=== PATIENT | male | born 1960 ===

== ENCOUNTER 2022-05-16 18:51 | Emergency (ER) | payer MEDICAID, SELFPAY ==
[2022-05-16 18:58] VITALS: BP 112/73; PULSE 87; RESP 16; TEMP 36.8; O2SAT 96
--- NOTE | 2022-05-16 19:02 | ED.GENADUL_ITS ---
Discharge Plan Disposition Patient Disposition: HOME Condition: Stable Discharge Details Clinical Impression: Homeless Primary Care Provider: Unknown,Unknown ED Provider: Shorty Dyer Home Meds and New Rx's Prescriptions: Continued Xarelto 20 mg Tablet 20 mg PO DAILY torsemide 20 mg Tablet 20 mg PO DAILY spironolactone 25 mg Tablet 25 mg PO DAILY AM lisinopril 2.5 mg Tablet 2.5 mg PO DAILY pantoprazole 40 mg Tablet,Delayed Release (Dr/Ec) 40 mg PO DAILY AM divalproex [Depakote ER] 500 mg Tablet Extended Release 24 Hr 1,000 mg PO HS atorvastatin 20 mg Tablet 20 mg PO HS quetiapine 50 mg Tablet 50 mg PO BID quetiapine 400 mg Tablet 400 mg PO HS metoprolol succinate 50 mg Tablet Extended Release 24 Hr 50 mg PO DAILY AM trazodone 100 mg Tablet 100 mg PO HS Discharge Instructions Instructions: Rectal Bleeding (ED) Additional Instructions: Please take you medications as prescribed. Your exam is positive for blood in your stool today. I would like you to follow-up with general surgery for colonoscopy. Care management will reach out to you to help schedule follow-up appointment. Please follow [place] [facility] [place]. You have contracted to [facility] with mental health this evening. If you find yourself begin to escalate, please try to isolate, with music and journal as was outlined with mental health provider. You may call [facility] human services at any time if you have increasing concerns for your mental health at [phone]. If you have increased bleeding, abdominal pain, lightheadedness or thoughts of self-harm, or any other concerning symptoms, please return to the emergency department. Referrals: Galilea Vargas DO [OSTEOPATHIC DOCTOR] - Discharge Data Discharge Date/Time-TO BE ENTERED AT DEPARTURE: 05/18/22 15:43 Medical Decision Making <BRIDGETTE Boo - Last Filed: 05/18/22 14:07> Patient is a 61-year-old male presenting with regarding the right EMS, with chief complaint of blood clots noted in his stool. Past medical history significant for bipolar disorder, Neurocognitive disorder, TBI, HFrEF, HLD, GERD. Patient was [place] [facility] [place] after inpatient stay for suicidal ideation. He denies any suicidal or homicidal ideation at this time although he does report that he is at a chronic issue with his mental health. He describes a long admission both [place] [facility] as well as at [facility], has been in and out this summer based on patient report. He reports that he likes being admitted as it has better food and is bus cleaner without large dogs. He reports a prior to being discharged from [facility] this morning, he had a bowel movement and noted a blood clot in the stool. This sounds to only happen x1. Describes it as a dark blood clot and no large quantities of blood in the toilet. He has had this happen 1 time historically, states this last happened about 1 year ago. No previous hemorrhoids that he is aware of. He denies any abdominal or rectal pain. No fevers or chills. No nausea or vomiting. Denies any easy bruising, hematuria, bleeding gums. No familial history of colorectal cancer. Patient does report that he was previously scheduled for colonoscopy but secondary to his numerous admissions he did miss this. Reviewed notes from [facility] discharge Today. They do report that the patient was recently admitted for 2-month inpatient psychiatric hospitalization. Was admitted this time for SI and decreased oral intake. Patient was discharged as he was not endorsing any SI and the p.o. intake was limited as the patient did not like the food at his current living situation. This is largely with him during tonight on the patient initial discussion with me. They advised that there is no psychiatric indication for hospitalization patient was discharged. Patient did undergo medical work-up. After this, his decreased appetite was deemed to be associated with behavioral reasons rather than self-harm. Exam, patient appears nontoxic. He appears well-hydrated. His abdomen is benign with no mass, tenderness time. Rectal exam reveals heme positive stool. This is not grossly bloody. Spoke with the patient's legal guardian, Jyotsna [phone]. She gave permission to treat. I did discuss with her the patient does not seem to be actively suicidal at this time. Rather, patient like to be admitted for more comfort reasons. Spoke with mental health. They advised that they were initially notified that the patient was initially expressing suicidal ideations. They did evaluate patient at bedside and believe he is safe for discharge home. They have 2 finding the same information with patient primarily reporting that he likes admission for the cleanliness, food and general environment. He did not meet criteria for inpatient psychiatric admission. He is a Patient and does have planned follow-up. Safety plan was made with mental [facility] based on patient's history. With patient did have blood work completed while at [facility]. Yesterday, patient's hemoglobin was 17. Demonstrating this associate with internal hemorrhoids or alternatively diverticulosis. I did relay this to the patient. I do not note any palpable internal hemorrhoids time. He does report that he is due for colonoscopy so alternatively, I did consider colorectal cancer and feel that the patient should be followed up with a colonoscopy. I have asked her care management to assist with this follow-up. As patient has is not an imminent threat to himself or others, is not here for any psychiatric complaint, was evaluated by mental health and is hemodynamically stable in regard to his bleeding, so the patient may be discharged home. I have asked care management to ensure that patient has prompt follow-up with primary care as well as referral for further evaluation of his recurrent rectal bleeding and likely colonoscopy. When we attempted to reach out to patient's home care provider and guardian, there is no answer. He does have a history of TBI and does have a legal guardian, will have him sleep in the department to ensure safety until we are able to secure safe transport home. Patient does feel safe going home and is agreeable with this plan. All questions and concerns were addressed. Return cautions were discussed. At the end of my shift, patient sleeping in room 5. Care transitioned to Dr. Sandy. Cleared but unable to reach anyone to pick him up for return home. pt signed out to me, will require care management involvement in the AM to find safe transportation home and also make sure he has a safe place to go to. 05/17 9: 50 patient resting comfortably no acute distress. Reached out to most recent caregiver the [employer] family at phone number [phone] and spoke with Violette Ojeda who endorses that through the [employer] support services they were the most recent ethernet network architect of patient, endorses that over the past several days he has become more reclusive and aggressive both with her and the family dog to the point where they needed to call the police and EMS, they were unwilling to accept patient back into their care. Care management team has reached out to patient's state appointed guardian who says that she has a w [place] to go to and is uncertain about taking the patient back although she will attempt to reach out to other contacts to see if they can secure a safe place for patient to stay. In the meantime I have given patient has home medications. Will reassess placement options this afternoon if no options available, will attempt to admit patient for placement as he is an at risk older male that is unlikely able to care for himself at this time 19: 57 care management team and myself have been in contact with multiple prior caregivers and caregiver organizations, currently patient's most recent care givers are unavailable or unwilling to accept him back to the home given his recent behavior. Care management organization currently reaching out to find safe placement for this patient. Currently resting notably no acute distress. Was given his morning meds will need his evening meds today. <Juan Sandy MD - Last Filed: 05/17/22 02:51> Patient is a 61-year-old male presenting with regarding the right EMS, with chief complaint of blood clots noted in his stool. Past medical history significant for bipolar disorder, Neurocognitive disorder, TBI, HFrEF, HLD, GERD. Patient was [place] [facility] [place] after inpatient stay for suicidal ideation. He denies any suicidal or homicidal ideation at this time although he does report that he is at a chronic issue with his mental health. He describes a long admission both [place] [facility] as well as at [facility], has been in and out this summer based on patient report. He reports that he likes being admitted as it has better food and is bus cleaner without large dogs. He reports a prior to being discharged from [facility] this morning, he had a bowel movement and noted a blood clot in the stool. This sounds to only happen x1. Describes it as a dark blood clot and no large quantities of blood in the toilet. He has had this happen 1 time historically, states this last happened about 1 year ago. No previous hemorrhoids that he is aware of. He denies any abdominal or rectal pain. No fevers or chills. No nausea or vomiting. Denies any easy bruising, hematuria, bleeding gums. No familial history of colorectal cancer. Patient does report that he was previously scheduled for colonoscopy but secondary to his numerous admissions he did miss this. Reviewed notes from [facility] discharge Today. They do report that the patient was recently admitted for 2-month inpatient psychiatric hospitalization. Was admitted this time for SI and decreased oral intake. Patient was discharged as he was not endorsing any SI and the p.o. intake was limited as the patient did not like the food at his current living situation. This is largely with him during tonight on the patient initial discussion with me. They advised that there is no psychiatric indication for hospitalization patient was discharged. Patient did undergo medical work-up. After this, his decreased appetite was deemed to be associated with behavioral reasons rather than self-harm. Exam, patient appears nontoxic. He appears well-hydrated. His abdomen is benign with no mass, tenderness time. Rectal exam reveals heme positive stool. This is not grossly bloody. Spoke with the patient's legal guardian, Jyotsna [phone]. She gave permission to treat. I did discuss with her the patient does not seem to be actively suicidal at this time. Rather, patient like to be admitted for more comfort reasons. Spoke with mental health. They advised that they were initially notified that the patient was initially expressing suicidal ideations. They did evaluate patient at bedside and believe he is safe for discharge home. They have 2 finding the same information with patient primarily reporting that he likes admission for the cleanliness, food and general environment. He did not meet criteria for inpatient psychiatric admission. He is a Patient and does have planned follow-up. Safety plan was made with mental health tonight based on patient's history. With patient did have blood work completed while at [facility]. Yesterday, patient's hemoglobin was 17. Demonstrating this associate with internal hemorrhoids or alternatively diverticulosis. I did relay this to the patient. I do not note any palpable internal hemorrhoids time. He does report that he is due for colonoscopy so alternatively, I did consider colorectal cancer and feel that the patient should be followed up with a colonoscopy. I have asked her care management to assist with this follow-up. As patient has is not an imminent threat to himself or others, is not here for any psychiatric complaint, was evaluated by mental [facility] and is hemodynamically stable in regard to his bleeding, so the patient may be discharged home. I have asked care management to ensure that patient has prompt follow-up with primary care as well as referral for further evaluation of his recurrent rectal bleeding and likely colonoscopy. When we attempted to reach out to patient's home care provider and guardian, there is no answer. He does have a history of TBI and does have a legal guardian, will have him sleep in the department to ensure safety until we are able to secure safe transport home. Patient does feel safe going home and is agreeable with this plan. All questions and concerns were addressed. Return cautions were discussed. At the 3end of my shift, patient sleeping in room 5. Care transitioned to Dr. Sandy. Cleared but unable to reach anyone to pick him up for return home. pt signed out to me, will require care management involvement in the AM to find safe transportation home and also make sure he has a safe place to go to. <Fred Guerra MD - Last Filed: 05/17/22 19:58> Patient is a 61-year-old male presenting with regarding the right EMS, with chief complaint of blood clots noted in his stool. Past medical history significant for bipolar disorder, Neurocognitive disorder, TBI, HFrEF, HLD, GERD. Patient was [place] [facility] [place] inpatient stay for suicidal ideation. He denies any suicidal or homicidal ideation at this time although he does report that he is at a chronic issue with his mental health. He describes a long admission both [place] [facility] as well as at [facility], has been in and out this summer based on patient report. He reports that he likes being admitted as it has better food and is bus cleaner without large dogs. He reports a prior to being discharged from [facility] this morning, he had a bowel movement and noted a blood clot in the stool. This sounds to only happen x1. Describes it as a dark blood clot and no large quantities of blood in the toilet. He has had this happen 1 time historically, states this last happened about 1 year ago. No previous hemorrhoids that he is aware of. He denies any abdominal or rectal pain. No fevers or chills. No nausea or vomiting. Denies any easy bruising, hematuria, bleeding gums. No familial history of colorectal cancer. Patient does report that he was previously scheduled for colonoscopy but secondary to his numerous admissions he did miss this. Reviewed notes from [facility] discharge Today. They do report that the patient was recently admitted for 2-month inpatient psychiatric hospitalization. Was admitted this time for SI and decreased oral intake. Patient was discharged as he was not endorsing any SI and the p.o. intake was limited as the patient did not like the food at his current living situation. This is largely with him during tonight on the patient initial discussion with me. They advised that there is no psychiatric indication for hospitalization patient was discharged. Patient did undergo medical work-up. After this, his decreased appetite was deemed to be associated with behavioral reasons rather than self-harm. Exam, patient appears nontoxic. He appears well-hydrated. His abdomen is benign with no mass, tenderness time. Rectal exam reveals heme positive stool. This is not grossly bloody. Spoke with the patient's legal guardian, Jyotsna [phone]. She gave permission to treat. I did discuss with her the patient does not seem to be actively suicidal at this time. Rather, patient like to be admitted for more comfort reasons. Spoke with mental health. They advised that they were initially notified that the patient was initially expressing suicidal ideations. They did evaluate patient at bedside and believe he is safe for discharge home. They have 2 finding the same information with patient primarily reporting that he likes admission for the cleanliness, food and general environment. He did not meet criteria for inpatient psychiatric admission. He is a Patient and does have planned follow-up. Safety plan was made with mental health tonight based on patient's history. With patient did have blood work completed while at [facility]. Yesterday, patient's hemoglobin was 17. Demonstrating this associate with internal hemorrhoids or alternatively diverticulosis. I did relay this to the patient. I do not note any palpable internal hemorrhoids time. He does report that he is due for colonoscopy so alternatively, I did consider colorectal cancer and feel that the patient should be followed up with a colonoscopy. I have asked her care management to assist with this follow-up. As patient has is not an imminent threat to himself or others, is not here for any psychiatric complaint, was evaluated by mental [facility] and is hemodynamically stable in regard to his bleeding, so the patient may be discharged home. I have asked care management to ensure that patient has prompt follow-up with primary care as well as referral for further evaluation of his recurrent rectal bleeding and likely colonoscopy. When we attempted to reach out to patient's home care provider and guardian, there is no answer. He does have a history of TBI and does have a legal guardian, will have him sleep in the department to ensure safety until we are able to secure safe transport home. Patient does feel safe going home and is agreeable with this plan. All questions and concerns were addressed. Return cautions were discussed. At the 3end of my shift, patient sleeping in room 5. Care transitioned to Dr. Sandy. Cleared but unable to reach anyone to pick him up for return home. pt signed out to me, will require care management involvement in the AM to find safe transportation home and also make sure he has a safe place to go to. 05/17 9: 50 patient resting comfortably no acute distress. Reached out to most recent caregiver the [employer] family at phone number [phone] and spoke with Violette Ojeda who endorses that through the [employer] support services they were the most recent ethernet network architect of patient, endorses that over the past several days he has become more reclusive and aggressive both with her and the family dog to the point where they needed to call the police and EMS, they were unwilling to accept patient back into their care. Care management team has reached out to patient's state appointed guardian who says that she has a wedding to go to and is uncertain about taking the patient back although she will attempt to reach out to other contacts to see if they can secure a safe place for patient to stay. In the meantime I have given patient has home medications. Will reassess placement options this afternoon if no options available, will attempt to admit patient for placement as he is an at risk older male that is unlikely able to care for himself at this time 19: 57 care management team and myself have been in contact with multiple prior caregivers and caregiver organizations, currently patient's most recent caregivers are unavailable or unwilling to accept him back to the home given his recent behavior. Care management organization currently reaching out to find safe placement for this patient. Currently resting notably no acute distress. Was given his morning meds will need his evening meds today. HPI <BRIDGETTE Boo - Last Filed: 05/18/22 14:07> General Date/Time Provider Initiated Documentation: 05/16/22 19:01 . Limitations to Documentation: no limitations . Information obtained by: patient, EMS and RN notes reviewed . History of Present Illness 61 year old M presents to the emergency department with the chief complaint of clots noted in stool this AM, described as mild (x 1, none since) and similar to prior episodes (similar about one year ago), with intensity rated at 1 (denies any pain). and is localized to the buttocks. Patient reports no radiation. Patient started experiencing this hour(s) (x1 blood stool this AM) and it has been now resolved. No relieving factors improve symptom(s), No exacerbating factors reported . Patient notes no other symptoms.. Patient did receive the following treatments prior to arrival, none Related Data Home Medications Medication Instructions Recorded Confirmed atorvastatin 20 mg tablet 20 mg PO HS 05/17/22 05/17/22 divalproex 500 mg tablet,extended 1,000 mg PO HS 05/17/22 05/17/22 release 24 hr (Depakote ER) lisinopril 2.5 mg tablet 2.5 mg PO DAILY 05/17/22 05/17/22 metoprolol succinate 50 mg 50 mg PO DAILY AM 05/17/22 05/17/22 tablet,extended release 24 hr pantoprazole 40 mg tablet,delayed 40 mg PO DAILY AM 05/17/22 05/18/22 release quetiapine 400 mg tablet 400 mg PO HS 05/17/22 05/17/22 quetiapine 50 mg tablet 50 mg PO BID 05/17/22 05/18/22 rivaroxaban 20 mg tablet (Xarelto) 20 mg PO DAILY 05/17/22 05/17/22 spironolactone 25 mg tablet 25 mg PO DAILY AM 05/17/22 05/18/22 torsemide 20 mg tablet 20 mg PO DAILY 05/17/22 05/17/22 trazodone 100 mg tablet 100 mg PO HS 05/18/22 05/18/22 Allergies Allergy/AdvReac Type Severity Reaction Status Date / Time Penicillins Allergy Unverified 05/16/22 19:09 Review of Systems <BRIDGETTE Boo - Last Filed: 05/18/22 14:07> Constitutional Constitutional: Reports as per HPI, Denies chills, Denies fatigue, Denies fever(s) and Denies headache(s) ENT Ears, Nose, Mouth, and Throat: Denies headache(s) Cardiovascular Cardiovascular: Reports as per HPI, Denies chest pain and Denies dyspnea Respiratory Respiratory: Reports as per HPI, Denies cough and Denies dyspnea Gastrointestinal Gastrointestinal: Reports as per HPI Genitourinary Genitourinary: Denies system reviewed and no additional complaints, except as documented (patient denies any change in urinary habits) Musculoskeletal Musculoskeletal: Reports as per HPI and Denies back pain Integumentary/Breasts Skin/Breast: Reports as per HPI and Denies rash Neurologic Neurologic: Reports as per HPI and Denies headache(s) Psychiatric Psychiatric: Denies hopelessness, Reports irritability (does not like dog or food in current residence), Denies homicidal ideation and Denies suicidal ideation Endocrine Endocrine: Denies fatigue PFSH <BRIDGETTE Boo - Last Filed: 05/18/22 14:07> All Active Problems Homeless (Acute) Social History Smoking/Tobacco Use Status: Former Tobacco Use Smoking risk assessment performed?: Yes Alcohol Intake: former Substance use type: does not use Exam <BRIDGETTE Boo - Last Filed: 05/18/22 14:07> Const General: cooperative, healthy appearing, comfortable, no acute distress and well developed Nutritional Appearance: average body habitus and well nourished Orientation: alert and awake HENMT Head: normal to inspection Mouth: moist mucous membranes Resp Effort & Inspection: normal respiratory effort, able to speak in complete sentences and no respiratory distress Auscultation: clear to auscultation bilaterally, no rales, no rhonchi and no wheezes Cardio Rate: regular rate Rhythm: regular rhythm Heart Sounds: S1 normal and S2 normal GI Inspection: normal to inspection Palpation: soft, no hepatosplenomegaly, not firm, no guarding, no hernias, no masses, no pulsatile masses, not rigid, nontender and No ascites Percussion: normal to percussion Auscultation: normal bowel sounds Rectal Exam: visual inspection normal, normal sphincter tone, prostate normal and heme positive stool trace Back/Spine/Pelvis Back: no CVA tenderness Skin General skin exam: no rashes or lesions noted Trauma: no lacerations or abrasions Neuro General: patient alert and patient awake Cognition: normal cognition Speech: speech normal Gait: normal gait Psych Appearance: grossly normal and well kempt Mental Status: mental status grossly normal Speech and Movement: speech and movement normal Mood: congruent mood Affect: normal affect Attitude: cooperative Thought Process: normal Thought Content: normal Insight: limited Judgment: limited Sign Out <BRIDGETTE Boo - Last Filed: 05/18/22 14:07> Sign Out Data: Sign Out Comment: Care transitioned to Dr. Sandy, waiting ride home. Was initially reported to be here for psychiatric complaints but has consistently denied since coming here. Evaluated and cleared by . Concerned about BRBPR, this [place] [facility] [place]. Have referred to general surgery for colonoscopy and local PCP Last updated by Erika Rodriguez PA at 05/17/22 01:51 Sign Out Comment: [place] [facility] [place]bipolar and also social reasons, ended up here after ems bypassed [facility]. Cleared by mental health but no rides for him to pick him up, will likely require care management involvement. Last updated by Juan Sandy MD at 05/17/22 02:52 Sign Out Comment: care management team working on finding secure placement; medically and psychiatrically stable; will need evening doses of home meds; reassessing placements options in AM Last updated by Fred Guerra MD at 05/17/22 20:00 Sign Out Comment: care management working to find safe dispo, no acute psychiatric or medical need for admission, homeless Last updated by Juan Sandy MD at 05/18/22 00:26
--- NOTE | 2022-05-17 08:22 | NUR.NOTE ---
pt had a brown , formed BM in the toilet Nursing Note:
[2022-05-17 08:41] VITALS: BP 159/106; PULSE 62; RESP 16; O2SAT 95
--- NOTE | 2022-05-17 08:42 | NUR.NOTE ---
burke barton from [facility] called to say that they could not help this pt in any way. when asked, shesaid that pt was in a shared living provider situation. they will not accept him back.Nursing Note:
--- NOTE | 2022-05-17 09:00 | NUR.NOTE ---
Nursing Note: Faxed to [facility] referral for bloody stool/needs colonoscopy; ARIELA.
[2022-05-17] MEDS: Divalproex 500 MG TABEC 1000 MG PO (09:52)
[2022-05-17] MEDS: Atorvastatin 20 MG TAB PO ×2 (09:52→21:19)
[2022-05-17] MEDS: Spironolactone 25 MG TAB PO (09:53)
[2022-05-17] MEDS: LISINOPRIL 2.5 MG TAB PO (09:53)
[2022-05-17] MEDS: Rivaroxaban 10 MG TABLET 20 MG PO (09:54)
[2022-05-17] MEDS: Torsemide 20 MG TAB PO (10:00)
[2022-05-17] MEDS: Pantoprazole 40 MG TABCR PO (10:00)
[2022-05-17] MEDS: Metoprolol 50 MG TAB PO (10:00)
[2022-05-17] MEDS: QUEtiapine 50 MG TAB PO (10:00)
--- NOTE | 2022-05-17 11:55 | PDOC.MHCN_ITS ---
Date of service: 05/16/22 Time of Service: 21:00 Mental Health Crisis Note Presenting Issue How did you arrive at the ED and why did you come: Client was brought to [facility] via [facility] after reporting to [facility], EMT, and this appeals writer he was suicidal. Precipitating Factors On arrival to [facility] cleint reproted he was not suicidal and would never intentionally harm himself. Disposition BEHAVIOR: Unremarkable EYE CONTACT: Good MOOD: Depressed AFFECT: Congruent with mood APPETITE: Client reports a disrupted eating pattern. SLEEP(trouble falling/staying asleep: Client reports he has been sleeping a lot. Plan Client does not meet criteria for inpatient hospitalization. After reviewing this client's discharge paperwork from [facility] with the doctor and discusisng with the client it appears this client has been in and out of different h ospitals and treatment facilities due to him not liking his repsite workers. This clinician contacted his legal guardian and reported this to her. Client is cleared mental health [facility] with a safety plan. Signature Clinician's Name/Title: Angela Newberry, [employer] Floor Supervisor, [facility]
[2022-05-17 19:11] VITALS: BP 132/67; PULSE 79; RESP 16; TEMP 36.6; O2SAT 97
--- NOTE | 2022-05-17 19:40 | NUR.NOTE ---
Prisca Ozuna called to say that they are having trouble finding a safe place for this patient, now seeking advice from the [facility] and will touch base in the morning. Nursing Note:
--- NOTE | 2022-05-17 20:31 | ED.PROG_ITS ---
Date of service: 05/17/22 Time of Service: 20:31 Medical Decision Making patient reportedly kicked out of his prior housing and given his psychiatric history and prior tbi unsafe to d/c and has no one willing to pick him up per report. Care management continuing to try and find placement for him, no medical reason for admission. Will continue to monitor until safe dispo found Sign Out Sign Out Data: Sign Out Comment: Care transitioned to Dr. Sandy, waiting ride home. Was initially reported to be here for psychiatric complaints but has consistently denied since coming here. Evaluated and cleared by . Concerned about BRBPR, this has been evaluated by [facility] yesterday. Have referred to general surgery for colonoscopy and local PCP Last updated by Erika Rodriguez PA at 05/17/22 01:51 Sign Out Comment: was inpatient at [facility] for si/depression/bipolar and also social reasons, ended up here after ems bypassed [facility]. Cleared by mental health but no rides for him to pick him up, will likely require care management involvement. Last updated by Juan Sandy MD at 05/17/22 02:52 Sign Out Comment: care management team working on finding secure placement; medically and psychiatrically stable; will need evening doses of home meds; reassessing placements options in AM Last updated by Fred Guerra MD at 05/17/22 20:00 Discharge Plan Disposition Patient Disposition: STILL A PATIENT Condition: Stable Discharge Details Clinical Impression: Homeless Primary Care Provider: Unknown,Unknown ED Provider: Juan Sandy Home Meds and New Rx's Prescriptions: No Action Xarelto 20 mg Tablet 20 mg PO DAILY torsemide 20 mg Tablet 20 mg PO DAILY spironolactone 25 mg Tablet 25 mg PO lisinopril 2.5 mg Tablet 2.5 mg PO DAILY pantoprazole 40 mg Tablet,Delayed Release (Dr/Ec) PO divalproex [Depakote ER] 500 mg Tablet Extended Release 24 Hr 1,000 mg PO HS atorvastatin 20 mg Tablet 20 mg PO HS quetiapine 50 mg Tablet 50 mg PO HS quetiapine 400 mg Tablet 400 mg PO HS metoprolol succinate 50 mg Tablet Extended Release 24 Hr 50 mg PO DAILY AM Discharge Instructions Instructions: Rectal Bleeding (ED) Additional Instructions: Your exam is positive for blood in your stool today. I would like you to follow-up with general surgery for colonoscopy. Care management will reach out to you to help schedule follow-up appointment. Please follow post discharge recommendations from [facility] regarding your mental health. You have contracted to [facility] with mental health this evening. If you find yourself begin to escalate, please try to isolate, with music and journal as was outlined with mental health provider. You may call [facility] Jimmy Fairly at any time if you have increasing concerns for your mental health at [phone]. If you have increased bleeding, abdominal pain, lightheadedness or thoughts of self-harm, please seek care urgently once again Referrals: Galilea Vargas, [OSTEOPATHIC DOCTOR] -
[2022-05-17] MEDS: QUEtiapine 300 MG, QUEtiapine 100 MG 400 MG PO (21:20)
[2022-05-17] MEDS: Divalproex Sodium 500 MG TAB.ER.24H 1000 MG PO (21:20)
[2022-05-18 10:20] VITALS: BP 99/65; PULSE 78; RESP 15; TEMP 36.1; O2SAT 93
[2022-05-18] MEDS: LISINOPRIL 2.5 MG TAB PO ×2 (10:23→15:26)
[2022-05-18] MEDS: Rivaroxaban 10 MG TABLET 20 MG PO ×2 (10:24→15:26)
[2022-05-18] MEDS: Torsemide 20 MG TAB PO ×2 (10:25→15:27)
[2022-05-18] MEDS: Spironolactone 25 MG TAB PO ×2 (10:27→15:27)
[2022-05-18] MEDS: Metoprolol CR 50 MG TABCR PO ×2 (10:27→15:26)
--- NOTE | 2022-05-18 10:33 | NUR.NOTE ---
pt was woken for [employer]. he was cooperative. breakfast presented to him. he is writing in his journal. he has been offerd to have a shower
--- NOTE | 2022-05-18 14:40 | ED.PROG_ITS ---
Date of service: 05/18/22 Time of Service: 14:43 Medical Decision Making Care was signed out by Dr. Sandy, plan at signout was to await placement. Patient medically cleared and with no acute psychiatric illness. Patient in need of new housing. I called and spoke with the patient's guardian and updated her as as to need for continued ED hold until safe housing can be established. I called and spoke with Gertrude Cordero at the office of public guardian. She noted that [facility] is looking into long-term placement and that [facility] is responsible for short-term placement. I called and spoke with Prisca Ozuna at [facility] and requested that short-term solution be identified. Prisca Ozuna return call later in the day and noted short-term plan has been established and that she will be in to transport patient. She did request dose of home medications to be provided until his medications can be secured from prior residential facility tomorrow. Medications were reviewed and provided. Sign Out Sign Out Data: Sign Out Comment: Care transitioned to Dr. Sandy, waiting ride home. Was initially reported to be here for psychiatric complaints but has consistently denied since coming here. Evaluated and cleared by . Concerned about BRBPR, this has been evaluated by [facility] yesterday. Have referred to general surgery for colonoscopy and local PCP Last updated by Erika Rodriguez PA at 05/17/22 01:51 Sign Out Comment: [place] [facility] [place]bipolar and also social reasons, ended up here after ems bypassed [facility]. Cleared by mental health but no rides for him to pick him up, will likely require care management involvement. Last updated by Juan Sandy MD at 05/17/22 02:52 Sign Out Comment: care management team working on finding secure placement; medically and psychiatrically stable; will need evening doses of home meds; reassessing placements options in AM Last updated by Fred Guerra MD at 05/17/22 20:00 Sign Out Comment: care management working to find safe dispo, no acute psychiatric or medical need for admission, homeless Last updated by Juan Sandy MD at 05/18/22 00:26 Discharge Plan Disposition Patient Disposition: HOME Condition: Stable Discharge Details Clinical Impression: Homeless Primary Care Provider: Unknown,Unknown ED Provider: Shorty Dyer Home Meds and New Rx's Prescriptions: Continued Xarelto 20 mg Tablet 20 mg PO DAILY torsemide 20 mg Tablet 20 mg PO DAILY spironolactone 25 mg Tablet 25 mg PO DAILY AM lisinopril 2.5 mg Tablet 2.5 mg PO DAILY pantoprazole 40 mg Tablet,Delayed Release (Dr/Ec) 40 mg PO DAILY AM divalproex [Depakote ER] 500 mg Tablet Extended Release 24 Hr 1,000 mg PO HS atorvastatin 20 mg Tablet 20 mg PO HS quetiapine 50 mg Tablet 50 mg PO BID quetiapine 400 mg Tablet 400 mg PO HS metoprolol succinate 50 mg Tablet Extended Release 24 Hr 50 mg PO DAILY AM trazodone 100 mg Tablet 100 mg PO HS Discharge Instructions Instructions: Rectal Bleeding (ED) Additional Instructions: Please take you medications as prescribed. Your exam is positive for blood in your stool today. I would like you to follow-up with general surgery for colonoscopy. Care management will reach out to you to help schedule follow-up appointment. Please follow post discharge recommendations from [facility] regarding your mental health. You have contracted to [facility] with mental health this evening. If you find yourself begin to escalate, please try to isolate, with music and journal as was outlined with mental health provider. You may call [facility] human services at any time if you have increasing concerns for your mental health at [phone]. If you have increased bleeding, abdominal pain, lightheadedness or thoughts of self-harm, or any other concerning symptoms, please return to the emergency department. Referrals: Galilea Vargas DO [OSTEOPATHIC DOCTOR] - Discharge Data Discharge Date/Time-TO BE ENTERED AT DEPARTURE: 05/18/22 15:43
[2022-05-18 14:59] VITALS: BP 100/71; PULSE 56; RESP 18; TEMP 36.8; O2SAT 96
[2022-05-18 15:02] VITALS: BP 100/71; PULSE 56; RESP 14; TEMP 36.8; O2SAT 96
[2022-05-18] MEDS: Divalproex Sodium 500 MG TAB.ER.24H 1000 MG PO (15:25)
[2022-05-18] MEDS: Folic Acid 1 MG TAB PO (15:25)
[2022-05-18] MEDS: hydrOXYzine HCL 50 MG TAB PO (15:25)
[2022-05-18] MEDS: Atorvastatin 20 MG TAB PO (15:25)
[2022-05-18] MEDS: Pantoprazole 40 MG TABCR PO (15:26)
[2022-05-18] MEDS: QUEtiapine 50 MG TAB PO (15:26)
[2022-05-18] MEDS: QUEtiapine 300 MG, QUEtiapine 100 MG 400 MG PO (15:26)
[2022-05-18] MEDS: traZODone 100 MG TAB PO (15:28)
--- NOTE | 2022-05-18 15:41 | NUR.NOTE ---
the two woman that came to get him stated that this discharge does not address this pts mental health needs I offerd to have the the ER MD speak with them . they declined .pt left ambulatory with his journaling book. Nursing Note:
== END 2022-05-18 15:43 | disposition home or self-care (01) ==
PROVIDERS: Emergency Provider Student in an Organized Health Care Education/Training Program
DX: F31.9 Bipolar disorder, unspecified (principal); R45.851 Suicidal ideations; R19.7 Diarrhea, unspecified; I50.20 Unspecified systolic (congestive) heart failure; Z59.00 Homelessness unspecified; Z87.820 Personal history of traumatic brain injury; Z87.891 Personal history of nicotine dependence
CPT/HCPCS: 99285; J3490